=== PATIENT | male | born 1950 | race Caucasian/White ===

== ENCOUNTER 2018-03-15 23:33 | Inpatient (IN) | payer MEDICARE, OTHER ==
[~2018-03-15] VITALS: Ht 175.3 cm; Wt 111.0 kg
[2018-03-15] MEDS ORDERED: NITROGLYCERIN IV PRN (23:39)
[2018-03-15] MEDS ORDERED: D5W PMX IV PRN (23:39)
[2018-03-15] MEDS ORDERED: NITROGLYCERIN SINGLE TAB 0.4 MG SL ONE (23:42)
[2018-03-15] MEDS ORDERED: NITROGLYCERIN/D5W PMX 250 ML ONE (23:42)
[2018-03-15] MEDS ORDERED: methylPREDNISolone SOD SUCC 125 MG/2 ML ONE (23:45)
[2018-03-15] MEDS ORDERED: LORazepam 2 MG/ML, 1ML IVPush STA (23:49)
[2018-03-15] MEDS ORDERED: LORazepam 2 MG/ML, 1ML ONE (23:49)
[2018-03-15 23:54] LABS: MEAN CORPUSCULAR HEMOGLOBIN 30.2 pg (27.5-34.5); MEAN CORPUSCULAR VOLUME 91.4 fL (81-97); MEAN PLATELET VOLUME 9.9 fL (7.4-10.4); PLATELET COUNT 270 x10^3/uL (130-400); RED BLOOD COUNT 4.92 x10^6/uL (4.38-5.82); RED CELL DISTRIBUTION WIDTH 14.7 % (9.4-14.8)
[2018-03-16] MEDS ORDERED: NITROGLYCERIN SINGLE TAB 0.4 MG SL PRN
[2018-03-16] MEDS ORDERED: SODIUM CHLORIDE FLUSH 10ML SYR IVF ONE
[2018-03-16] MEDS ORDERED: methylPREDNISolone SOD SUCC 125 MG/2 ML IVP ONE
[2018-03-16 00:05] LABS: ALBUMIN 3.9 g/dL (3.4-5.0); ANION GAP 11 mmol/L (5-15); CALCIUM 8.9 mg/dL (8.5-10.1); CHLORIDE 107 mmol/L (98-107); CREATININE 1.46 mg/dL (0.7-1.3)
[2018-03-16 00:13] LABS: MD YES
[2018-03-16 00:14] LABS: BASOS#(MANUAL) 0.21 x10^3/uL (0-0.1); BASOS% (MANUAL) 1 % (0-1); LYMPH#(MANUAL) 8.11 x10^3/uL (1-3.4); LYMPHS% (MANUAL) 39 % (22-44); MONOS#(MANUAL) 1.25 x10^3/uL (0.3-2.7); MONOS% (MANUAL) 6 % (2-9); SEG#(MANUAL) 11.23 x10^3/uL (1.8-6.8); SEGS% (MANUAL) 54 % (42-75)
[2018-03-16 00:15] LABS: <PLATELET ESTIMATE> ADEQUATE; <PLT MORPHOLOGY> NORMAL PLT MORPH; ANISOCYTOSIS 1+; POLYCHROMASIA 1+
[2018-03-16] MEDS: PROPOFOL 100 ML IV PRN ×8 (00:15→23:15)
[2018-03-16] MEDS ORDERED: TICAGRELOR 90 MG TABLET ONE (00:26)
[2018-03-16] MEDS ORDERED: VERAPAMIL 2.5 MG/ML, 2ML ONE (00:26)
[2018-03-16] MEDS ORDERED: FENTANYL PF 100 MCG/2ML ONE (00:26)
[2018-03-16] MEDS ORDERED: MIDAZOLAM 1 MG/ML, 5ML ONE ×2 (00:26→08:00)
[2018-03-16] MEDS ORDERED: NITROGLYCERIN 5 MG/ML, 10ML ONE (00:27)
[2018-03-16] MEDS ORDERED: HEPARIN 1,000 UNITS/ML, 10ML ONE (00:27)
[2018-03-16] MEDS ORDERED: PHENYLEPHRINE 10 MG/ML ONE (00:27)
[2018-03-16] MEDS ORDERED: BIVALIRUDIN 250 MG ONE ×2 (00:27→01:51)
[2018-03-16] MEDS ORDERED: ETOMIDATE 20 MG/10 ML IVPush ONE (00:30)
[2018-03-16] MEDS ORDERED: SUCCINYLCHOLINE 20 MG/ML, 10ML IVPush ONE (00:30)
[2018-03-16] MEDS ORDERED: MIDAZOLAM 1 MG/ML, 5ML IVPush ONE (01:00)
[2018-03-16] MEDS ORDERED: ASPIRIN 81 MG TABLET CHEW PO ONE (01:00)
[2018-03-16] MEDS ORDERED: SODIUM CHLORIDE 0.9% 500 ML IV PRN (01:50)
[2018-03-16] MEDS ORDERED: HEPARIN 25,000 UNITS in DEXTROSE 10% 495 ML IV SCH (02:30)
[2018-03-16] MEDS ORDERED: ASPIRIN 81 MG TABLET CHEW ONE (02:41)
[2018-03-16] MEDS ORDERED: PHARMACY MAY ADJ FOR RENAL FX MC SCH (03:30)
[2018-03-16] MEDS ORDERED: LIDOCAINE-MPF 1%, 2ML ENDO PRN (03:30)
[2018-03-16 03:52] LABS: ANION GAP 5 mmol/L (5-15); CALCIUM 7.9 mg/dL (8.5-10.1); CHLORIDE 107 mmol/L (98-107); CREATININE 1.34 mg/dL (0.7-1.3)
[2018-03-16] MEDS: HEPARIN 25,000 UNITS/500ML PMX 500 ML IV PRN ×2 (03:54→22:22)
[2018-03-16] MEDS ORDERED: REGULAR INSULIN 62.5 UNITS in SODIUM CHLORIDE 0.9% 249.375 ML IV PRN (04:00)
[2018-03-16] MEDS ORDERED: CEFAZOLIN PMX 1GM/50ML 50 ML IV ONE (06:00)
[2018-03-16] MEDS ORDERED: ETOMIDATE 20 MG/10 ML ONE (08:00)
[2018-03-16] MEDS ORDERED: SUCCINYLCHOLINE 20 MG/ML, 10ML ONE (08:00)
[2018-03-16] MEDS ORDERED: PROPOFOL 10 MG/ML, 20ML ONE (08:00)
[2018-03-16] MEDS ORDERED: PROPOFOL 10 MG/ML, 100ML IV ONE (08:00)
[2018-03-16] MEDS ORDERED: ASPIRIN 81 MG TABLET EC PO SCH (09:00)
[2018-03-16] MEDS: TICAGRELOR 90 MG TABLET PO SCH ×2 (09:50→21:10)
[2018-03-16] MEDS: ASPIRIN 81 MG TABLET CHEW PO SCH (10:43)
[2018-03-16] MEDS: INSULIN LISPRO 100 UNITS/ML, PEN SQ-INSULIN SCH ×3 (11:25→21:05)
[2018-03-16] MEDS: INSULIN GLARGINE 100 UNITS/ML, PEN SQ-INSULIN SCH ×2 (11:25→21:06)
[2018-03-16 12:30] LABS: HEMOGLOBIN A1C 6.3 % (4.2-6.3)
[2018-03-16 13:35] LABS: BASOPHILS # (AUTO) 0.02 x10^3/uL (0-0.1); BASOPHILS % (AUTO) 0 % (0-1); EOSINOPHILS % (AUTO) 0 % (1-7); LYMPHOCYTES # (AUTO) 0.67 x10^3/uL (1-3.4); LYMPHOCYTES % (AUTO) 6 % (22-44); MD SCAN; MEAN CORPUSCULAR HEMOGLOBIN 30.8 pg (27.5-34.5); MEAN CORPUSCULAR HGB CONC 33.9 g/dL (33.2-36.2); MEAN CORPUSCULAR VOLUME 90.9 fL (81-97); MEAN PLATELET VOLUME 10.1 fL (7.4-10.4); MONOCYTES # (AUTO) 0.35 x10^3/uL (0.2-0.8); MONOCYTES % (AUTO) 3 % (2-9); NEUTROPHILS # (AUTO) 10.89 x10^3/uL (1.8-6.8); NEUTROPHILS % (AUTO) 91 % (42-75); PLATELET COUNT 174 x10^3/uL (130-400); RED BLOOD COUNT 3.69 x10^6/uL (4.38-5.82); RED CELL DISTRIBUTION WIDTH 14.7 % (9.4-14.8)
[2018-03-16] MEDS ORDERED: MORPHINE SULFATE 4 MG/ML, 1ML ONE (16:16)
[2018-03-16] MEDS: MORPHINE SULFATE 4 MG/ML, 1ML IVPush PRN ×3 (16:22→19:51)
[2018-03-16] MEDS: ATORVASTATIN 80 MG TABLET PO SCH (21:10)
[2018-03-16] MEDS ORDERED: METF500T5 PO (23:32)
[2018-03-16] MEDS ORDERED: LOSA1TAB22 PO (23:33)
[2018-03-16] MEDS ORDERED: ATOR20TA9 PO (23:34)
[2018-03-16] MEDS ORDERED: AMLO10TA2 PO (23:34)
[2018-03-16] MEDS ORDERED: CLOP75TA52 PO (23:34)
[2018-03-16] MEDS ORDERED: MELA5TAB21 PO (23:38)
[2018-03-16] MEDS ORDERED: SERT100T5 PO (23:38)
[2018-03-16] MEDS ORDERED: ASPI500T13 PO (23:45)
[2018-03-16] MEDS ORDERED: DORZ10DR27 EACHEYE ×2 (23:48→23:50)
[2018-03-16] MEDS ORDERED: LATA7.5D EACHEYE (23:50)
[2018-03-17] MEDS: PROPOFOL 100 ML IV PRN ×7 (02:25→22:59)
[2018-03-17 04:00] VITALS: BP 95/58
[2018-03-17 04:24] LABS: BASOPHILS # (AUTO) 0.07 x10^3/uL (0-0.1); BASOPHILS % (AUTO) 1 % (0-1); EOSINOPHILS # (AUTO) 0.01 x10^3/uL (0-0.4); EOSINOPHILS % (AUTO) 0 % (1-7); LYMPHOCYTES # (AUTO) 0.97 x10^3/uL (1-3.4); LYMPHOCYTES % (AUTO) 9 % (22-44); MD NO; MEAN CORPUSCULAR HEMOGLOBIN 30.6 pg (27.5-34.5); MEAN CORPUSCULAR HGB CONC 33.9 g/dL (33.2-36.2); MEAN CORPUSCULAR VOLUME 90.1 fL (81-97); MEAN PLATELET VOLUME 10.1 fL (7.4-10.4); MONOCYTES # (AUTO) 0.84 x10^3/uL (0.2-0.8); MONOCYTES % (AUTO) 8 % (2-9); NEUTROPHILS # (AUTO) 9.36 x10^3/uL (1.8-6.8); NEUTROPHILS % (AUTO) 83 % (42-75); PLATELET COUNT 147 x10^3/uL (130-400); RED BLOOD COUNT 3.15 x10^6/uL (4.38-5.82); RED CELL DISTRIBUTION WIDTH 14.9 % (9.4-14.8)
[2018-03-17 04:31] LABS: ANION GAP 7 mmol/L (5-15); CALCIUM 7.4 mg/dL (8.5-10.1); CHLORIDE 110 mmol/L (98-107); CREATININE 1.52 mg/dL (0.7-1.3)
[2018-03-17] MEDS: MORPHINE SULFATE 4 MG/ML, 1ML IVPush PRN ×2 (04:31→10:12)
[2018-03-17] MEDS: INSULIN LISPRO 100 UNITS/ML, PEN SQ-INSULIN SCH ×3 (05:34→21:07)
[2018-03-17 06:34] LABS: ALBUMIN 2.9 g/dL (3.4-5.0)
[2018-03-17] MEDS: ASPIRIN 81 MG TABLET CHEW PO SCH (09:11)
[2018-03-17] MEDS: TICAGRELOR 90 MG TABLET PO SCH ×2 (09:11→21:05)
[2018-03-17] MEDS: INSULIN GLARGINE 100 UNITS/ML, PEN SQ-INSULIN SCH ×2 (09:12→21:05)
[2018-03-17] MEDS ORDERED: CEFAZOLIN PMX 1GM/50ML 0 ML ONE (12:06)
[2018-03-17] MEDS ORDERED: FUROSEMIDE 20 MG/2 ML ONE (13:13)
[2018-03-17] MEDS ORDERED: FUROSEMIDE 20 MG/2 ML IV ONE (13:30)
[2018-03-17] MEDS: EPINEPHRINE 1 MG in SODIUM CHLORIDE 0.9% 249 ML IV PRN (15:27)
[2018-03-17] MEDS: DOBUTAMINE 250 MG in SODIUM CHLORIDE 0.9% 230 ML IV PRN (16:33)
[2018-03-17] MEDS ORDERED: FUROSEMIDE 40 MG/4 ML IV ONE (17:00)
[2018-03-17] MEDS: ATORVASTATIN 80 MG TABLET PO SCH (21:05)
[2018-03-18] MEDS: DOBUTAMINE 250 MG in SODIUM CHLORIDE 0.9% 230 ML IV PRN ×3 (00:19→19:42)
[2018-03-18] MEDS: EPINEPHRINE 1 MG in SODIUM CHLORIDE 0.9% 249 ML IV PRN (04:31)
[2018-03-18] MEDS: PROPOFOL 100 ML IV PRN (04:32)
[2018-03-18] MEDS: INSULIN LISPRO 100 UNITS/ML, PEN SQ-INSULIN SCH ×4 (04:43→21:00)
[2018-03-18 05:05] LABS: BASOPHILS # (AUTO) 0.02 x10^3/uL (0-0.1); BASOPHILS % (AUTO) 0 % (0-1); EOSINOPHILS # (AUTO) 0.01 x10^3/uL (0-0.4); EOSINOPHILS % (AUTO) 0 % (1-7); LYMPHOCYTES # (AUTO) 0.66 x10^3/uL (1-3.4); LYMPHOCYTES % (AUTO) 10 % (22-44); MD NO; MEAN CORPUSCULAR HEMOGLOBIN 30.9 pg (27.5-34.5); MEAN CORPUSCULAR HGB CONC 34.3 g/dL (33.2-36.2); MEAN CORPUSCULAR VOLUME 90.1 fL (81-97); MEAN PLATELET VOLUME 9.5 fL (7.4-10.4); MONOCYTES % (AUTO) 11 % (2-9); NEUTROPHILS # (AUTO) 5.27 x10^3/uL (1.8-6.8); NEUTROPHILS % (AUTO) 79 % (42-75); PLATELET COUNT 112 x10^3/uL (130-400); RED BLOOD COUNT 2.58 x10^6/uL (4.38-5.82)
[2018-03-18 05:16] LABS: ANION GAP 8 mmol/L (5-15); CALCIUM 6.8 mg/dL (8.5-10.1); CHLORIDE 112 mmol/L (98-107); CREATININE 1.16 mg/dL (0.7-1.3)
[2018-03-18 06:17] VITALS: BP 121/55
[2018-03-18] MEDS: ASPIRIN 81 MG TABLET CHEW PO SCH (09:17)
[2018-03-18] MEDS: TICAGRELOR 90 MG TABLET PO SCH ×2 (09:17→21:29)
[2018-03-18] MEDS: FAMOTIDINE 20 MG/2 ML IVPush SCH ×2 (09:17→21:29)
[2018-03-18] MEDS: INSULIN GLARGINE 100 UNITS/ML, PEN SQ-INSULIN SCH ×2 (09:18→21:32)
[2018-03-18] MEDS ORDERED: CALCIUM CHLORIDE 13.6 MEQ in SODIUM CHLORIDE 0.9% 100 ML IV ONE (14:30)
[2018-03-18] MEDS ORDERED: ERGOCALCIFEROL 50,000 UNIT CAPSULE PO SCH (15:00)
[2018-03-18] MEDS: ATORVASTATIN 80 MG TABLET PO SCH (21:29)
[2018-03-19] MEDS: INSULIN LISPRO 100 UNITS/ML, PEN SQ-INSULIN SCH ×4 (03:00→20:57)
[2018-03-19 04:00] VITALS: BP 117/53
[2018-03-19 06:09] LABS: ALBUMIN 2.6 g/dL (3.4-5.0); ANION GAP 8 mmol/L (5-15); CHLORIDE 115 mmol/L (98-107); CREATININE 0.77 mg/dL (0.7-1.3)
[2018-03-19 06:37] LABS: BASOPHILS % (AUTO) 0 % (0-1); EOSINOPHILS # (AUTO) 0.04 x10^3/uL (0-0.4); EOSINOPHILS % (AUTO) 1 % (1-7); LYMPHOCYTES # (AUTO) 0.82 x10^3/uL (1-3.4); LYMPHOCYTES % (AUTO) 18 % (22-44); MD NO; MEAN CORPUSCULAR HEMOGLOBIN 30.4 pg (27.5-34.5); MEAN CORPUSCULAR HGB CONC 33.6 g/dL (33.2-36.2); MEAN CORPUSCULAR VOLUME 90.7 fL (81-97); MEAN PLATELET VOLUME 9.8 fL (7.4-10.4); MONOCYTES # (AUTO) 0.45 x10^3/uL (0.2-0.8); MONOCYTES % (AUTO) 10 % (2-9); NEUTROPHILS # (AUTO) 3.33 x10^3/uL (1.8-6.8); NEUTROPHILS % (AUTO) 72 % (42-75); PLATELET COUNT 104 x10^3/uL (130-400); RED BLOOD COUNT 2.61 x10^6/uL (4.38-5.82); RED CELL DISTRIBUTION WIDTH 14.7 % (9.4-14.8)
[2018-03-19] MEDS: FAMOTIDINE 20 MG/2 ML IVPush SCH ×2 (09:38→20:31)
[2018-03-19] MEDS: ASPIRIN 81 MG TABLET CHEW PO SCH (09:38)
[2018-03-19] MEDS: TICAGRELOR 90 MG TABLET PO SCH ×2 (09:39→20:30)
[2018-03-19] MEDS: ENOXAPARIN 40 MG/0.4 ML SQ SCH (10:30)
[2018-03-19] MEDS: INSULIN GLARGINE 100 UNITS/ML, PEN SQ-INSULIN SCH ×2 (11:55→20:59)
[2018-03-19 13:41] VITALS: BP 118/63
[2018-03-19] MEDS ORDERED: FUROSEMIDE 40 MG/4 ML ONE (14:00)
[2018-03-19] MEDS ORDERED: FUROSEMIDE 40 MG/4 ML IV ONE (14:00)
[2018-03-19 20:25] LABS: ANION GAP 5 mmol/L (5-15); CALCIUM 7.9 mg/dL (8.5-10.1); CHLORIDE 111 mmol/L (98-107)
[2018-03-19 20:29] LABS: CREATININE 1.03 mg/dL (0.7-1.3)
[2018-03-19] MEDS: ATORVASTATIN 80 MG TABLET PO SCH (20:30)
[2018-03-20] MEDS: INSULIN LISPRO 100 UNITS/ML, PEN SQ-INSULIN SCH ×4 (03:00→20:18)
[2018-03-20 05:06] LABS: CHLORIDE 111 mmol/L (98-107)
[2018-03-20 05:13] LABS: ALANINE AMINOTRANSFERASE 56 U/L (12-78); ALBUMIN 2.6 g/dL (3.4-5.0); ALKALINE PHOSPHATASE 99 U/L (45-117); ANION GAP 5 mmol/L (5-15); BILIRUBIN,TOTAL 0.7 mg/dL (0.2-1.0); CALCIUM 8.1 mg/dL (8.5-10.1); CREATININE 0.96 mg/dL (0.7-1.3)
[2018-03-20 05:28] LABS: BASOPHILS # (AUTO) 0.02 x10^3/uL (0-0.1); BASOPHILS % (AUTO) 0 % (0-1); EOSINOPHILS # (AUTO) 0.16 x10^3/uL (0-0.4); EOSINOPHILS % (AUTO) 3 % (1-7); LYMPHOCYTES # (AUTO) 0.96 x10^3/uL (1-3.4); LYMPHOCYTES % (AUTO) 16 % (22-44); MD NO; MEAN CORPUSCULAR HEMOGLOBIN 31.4 pg (27.5-34.5); MEAN CORPUSCULAR HGB CONC 34.6 g/dL (33.2-36.2); MEAN CORPUSCULAR VOLUME 90.7 fL (81-97); MONOCYTES # (AUTO) 0.61 x10^3/uL (0.2-0.8); MONOCYTES % (AUTO) 10 % (2-9); NEUTROPHILS # (AUTO) 4.28 x10^3/uL (1.8-6.8); NEUTROPHILS % (AUTO) 71 % (42-75); PLATELET COUNT 117 x10^3/uL (130-400); RED CELL DISTRIBUTION WIDTH 14.8 % (9.4-14.8)
[2018-03-20] MEDS: INSULIN GLARGINE 100 UNITS/ML, PEN SQ-INSULIN SCH ×2 (09:22→20:19)
[2018-03-20] MEDS: FAMOTIDINE 20 MG/2 ML IVPush SCH ×2 (09:23→20:17)
[2018-03-20] MEDS: TICAGRELOR 90 MG TABLET PO SCH ×2 (09:23→20:17)
[2018-03-20] MEDS: FUROSEMIDE 40 MG/4 ML IV SCH ×2 (09:23→16:37)
[2018-03-20] MEDS: ASPIRIN 81 MG TABLET CHEW PO SCH (09:23)
[2018-03-20] MEDS: ENOXAPARIN 40 MG/0.4 ML SQ SCH (09:24)
[2018-03-20] MEDS: ATORVASTATIN 80 MG TABLET PO SCH (20:17)
[2018-03-21 04:26] LABS: BASOPHILS # (AUTO) 0.02 x10^3/uL (0-0.1); BASOPHILS % (AUTO) 0 % (0-1); EOSINOPHILS # (AUTO) 0.22 x10^3/uL (0-0.4); EOSINOPHILS % (AUTO) 4 % (1-7); LYMPHOCYTES # (AUTO) 0.99 x10^3/uL (1-3.4); LYMPHOCYTES % (AUTO) 18 % (22-44); MD NO; MEAN CORPUSCULAR HEMOGLOBIN 30.7 pg (27.5-34.5); MEAN CORPUSCULAR HGB CONC 34.1 g/dL (33.2-36.2); MEAN CORPUSCULAR VOLUME 90.1 fL (81-97); MEAN PLATELET VOLUME 9.7 fL (7.4-10.4); MONOCYTES # (AUTO) 0.61 x10^3/uL (0.2-0.8); MONOCYTES % (AUTO) 11 % (2-9); NEUTROPHILS # (AUTO) 3.77 x10^3/uL (1.8-6.8); NEUTROPHILS % (AUTO) 67 % (42-75); PLATELET COUNT 123 x10^3/uL (130-400); RED BLOOD COUNT 2.59 x10^6/uL (4.38-5.82); RED CELL DISTRIBUTION WIDTH 14.4 % (9.4-14.8)
[2018-03-21 04:30] LABS: ALANINE AMINOTRANSFERASE 75 U/L (12-78); ALBUMIN 2.5 g/dL (3.4-5.0); ANION GAP 6 mmol/L (5-15); CALCIUM 7.8 mg/dL (8.5-10.1); CHLORIDE 109 mmol/L (98-107); CREATININE 0.88 mg/dL (0.7-1.3)
[2018-03-21 04:33] LABS: ALKALINE PHOSPHATASE 105 U/L (45-117); BILIRUBIN,TOTAL 0.5 mg/dL (0.2-1.0); TOTAL PROTEIN 5.8 g/dL (6.4-8.2)
[2018-03-21] MEDS: INSULIN LISPRO 100 UNITS/ML, PEN SQ-INSULIN SCH ×4 (07:00→20:17)
[2018-03-21] MEDS ORDERED: FUROSEMIDE 40 MG TABLET ONE (08:44)
[2018-03-21] MEDS: TICAGRELOR 90 MG TABLET PO SCH ×2 (08:47→20:00)
[2018-03-21] MEDS: ASPIRIN 81 MG TABLET CHEW PO SCH (08:47)
[2018-03-21] MEDS: FAMOTIDINE 20 MG/2 ML IVPush SCH ×2 (08:48→20:00)
[2018-03-21] MEDS: LISINOPRIL 5 MG TABLET PO SCH (08:48)
[2018-03-21] MEDS ORDERED: FUROSEMIDE 10 MG/ML ORAL SOL PO SCH (09:00)
[2018-03-21] MEDS: FUROSEMIDE 40 MG TABLET PO SCH (09:10)
[2018-03-21] MEDS: INSULIN GLARGINE 100 UNITS/ML, PEN SQ-INSULIN SCH ×2 (09:10→20:40)
[2018-03-21] MEDS: ENOXAPARIN 40 MG/0.4 ML SQ SCH (11:57)
[2018-03-21 12:15] VITALS: BP 115/64
[2018-03-21 13:31] VITALS: BP 120/59
[2018-03-21 18:37] VITALS: BP 116/77
[2018-03-21 19:55] VITALS: BP 115/78
[2018-03-21] MEDS: ATORVASTATIN 80 MG TABLET PO SCH (20:00)
[2018-03-21 22:00] VITALS: BP 115/67
[2018-03-22 03:33] VITALS: BP 129/72
[2018-03-22 03:49] LABS: ALANINE AMINOTRANSFERASE 75 U/L (12-78); ALBUMIN 2.6 g/dL (3.4-5.0); ANION GAP 6 mmol/L (5-15); CHLORIDE 107 mmol/L (98-107); CREATININE 0.92 mg/dL (0.7-1.3)
[2018-03-22 03:50] LABS: BASOPHILS # (AUTO) 0.03 x10^3/uL (0-0.1); BASOPHILS % (AUTO) 0 % (0-1); EOSINOPHILS # (AUTO) 0.23 x10^3/uL (0-0.4); EOSINOPHILS % (AUTO) 4 % (1-7); LYMPHOCYTES # (AUTO) 1.16 x10^3/uL (1-3.4); LYMPHOCYTES % (AUTO) 18 % (22-44); MD NO; MEAN CORPUSCULAR HEMOGLOBIN 30.3 pg (27.5-34.5); MEAN CORPUSCULAR HGB CONC 33.6 g/dL (33.2-36.2); MEAN CORPUSCULAR VOLUME 90.2 fL (81-97); MEAN PLATELET VOLUME 8.8 fL (7.4-10.4); MONOCYTES # (AUTO) 0.89 x10^3/uL (0.2-0.8); MONOCYTES % (AUTO) 14 % (2-9); NEUTROPHILS # (AUTO) 4.32 x10^3/uL (1.8-6.8); NEUTROPHILS % (AUTO) 65 % (42-75); PLATELET COUNT 149 x10^3/uL (130-400); RED BLOOD COUNT 2.61 x10^6/uL (4.38-5.82); RED CELL DISTRIBUTION WIDTH 14.3 % (9.4-14.8)
[2018-03-22 03:51] LABS: ALKALINE PHOSPHATASE 108 U/L (45-117); BILIRUBIN,TOTAL 0.4 mg/dL (0.2-1.0); TOTAL PROTEIN 5.8 g/dL (6.4-8.2)
[2018-03-22] MEDS: INSULIN LISPRO 100 UNITS/ML, PEN SQ-INSULIN SCH ×4 (07:00→20:18)
[2018-03-22 08:41] VITALS: BP 124/68
[2018-03-22] MEDS: ASPIRIN 81 MG TABLET CHEW PO SCH (08:43)
[2018-03-22] MEDS: LISINOPRIL 5 MG TABLET PO SCH (08:43)
[2018-03-22] MEDS: TICAGRELOR 90 MG TABLET PO SCH ×2 (08:44→20:06)
[2018-03-22] MEDS: FUROSEMIDE 40 MG TABLET PO SCH (08:44)
[2018-03-22] MEDS: FAMOTIDINE 20 MG/2 ML IVPush SCH (08:44)
[2018-03-22] MEDS: ENOXAPARIN 40 MG/0.4 ML SQ SCH (08:51)
[2018-03-22] MEDS: INSULIN GLARGINE 100 UNITS/ML, PEN SQ-INSULIN SCH ×2 (08:52→20:19)
[2018-03-22 14:57] VITALS: BP 118/65
[2018-03-22 18:52] VITALS: BP 104/56
[2018-03-22 20:03] VITALS: BP 113/58
[2018-03-22] MEDS: ATORVASTATIN 80 MG TABLET PO SCH (20:06)
[2018-03-22] MEDS: FAMOTIDINE 20 MG TABLET PO SCH (20:06)
[2018-03-23 03:40] VITALS: BP 149/81
[2018-03-23 07:58] VITALS: BP 120/60
[2018-03-23] MEDS: TICAGRELOR 90 MG TABLET PO SCH ×2 (08:03→20:14)
[2018-03-23] MEDS: ASPIRIN 81 MG TABLET CHEW PO SCH (08:03)
[2018-03-23] MEDS: FAMOTIDINE 20 MG TABLET PO SCH ×2 (08:03→20:14)
[2018-03-23] MEDS: FUROSEMIDE 40 MG TABLET PO SCH (08:04)
[2018-03-23] MEDS: LISINOPRIL 5 MG TABLET PO SCH (08:04)
[2018-03-23] MEDS: INSULIN LISPRO 100 UNITS/ML, PEN SQ-INSULIN SCH ×4 (08:05→20:15)
[2018-03-23] MEDS: ENOXAPARIN 40 MG/0.4 ML SQ SCH (08:05)
[2018-03-23] MEDS: INSULIN GLARGINE 100 UNITS/ML, PEN SQ-INSULIN SCH ×2 (08:05→20:14)
[2018-03-23 14:12] VITALS: BP 117/67
[2018-03-23 20:01] VITALS: BP 125/69
[2018-03-23] MEDS: ATORVASTATIN 80 MG TABLET PO SCH (20:14)
[2018-03-24 00:56] VITALS: BP 125/68
[2018-03-24] MEDS: INSULIN LISPRO 100 UNITS/ML, PEN SQ-INSULIN SCH ×2 (07:59→11:03)
[2018-03-24 08:00] VITALS: BP 117/63
[2018-03-24] MEDS: FUROSEMIDE 40 MG TABLET PO SCH (08:01)
[2018-03-24] MEDS: TICAGRELOR 90 MG TABLET PO SCH (08:01)
[2018-03-24] MEDS: FAMOTIDINE 20 MG TABLET PO SCH (08:01)
[2018-03-24] MEDS: ASPIRIN 81 MG TABLET CHEW PO SCH (08:02)
[2018-03-24] MEDS: LISINOPRIL 5 MG TABLET PO SCH (08:02)
[2018-03-24] MEDS: INSULIN GLARGINE 100 UNITS/ML, PEN SQ-INSULIN SCH (08:08)
[2018-03-24] MEDS: ENOXAPARIN 40 MG/0.4 ML SQ SCH (11:04)
[2018-03-24] MEDS ORDERED: FURO40TA6 PO (11:17)
[2018-03-24] MEDS ORDERED: ERGO500017 PO (11:17)
[2018-03-24] MEDS ORDERED: TICA90TA PO (11:17)
[2018-03-24] MEDS ORDERED: CARV3.1212 PO (11:17)
[2018-03-24] MEDS ORDERED: ASPI-515 PO (11:17)
[2018-03-24] MEDS ORDERED: LISI5TAB7 PO (11:17)
[2018-03-24] MEDS ORDERED: ATOR-2 PO (11:17)
== END 2018-03-24 13:35 | disposition home or self-care (01) | DRG 215 ==
LOC: ED 03-16 00:28 → EDIP 03-16 00:30 → CCU 03-16 02:33 → 5SO 03-19 13:18 → CCU 03-19 16:33 → 5SO 03-21 12:19 → DCLOUNGE 03-24 12:35
PROVIDERS: ADMIT Hospitalist; ATTEND Hospitalist
PROC: 02HA3RZ Insertion of Short-term External Heart Assist System into Heart, Percutaneous Approach (ICD-10-PCS; principal; 2018-03-16)
PROC: 5A0221D Assistance with Cardiac Output using Impeller Pump, Continuous (ICD-10-PCS; 2018-03-16)
PROC: 027135Z Dilation of Coronary Artery, Two Arteries with Two Drug-eluting Intraluminal Devices, Percutaneous Approach (ICD-10-PCS; 2018-03-16)
PROC: 5A1945Z Respiratory Ventilation, 24-96 Consecutive Hours (ICD-10-PCS; 2018-03-16)
PROC: 0BH17EZ Insertion of Endotracheal Airway into Trachea, Via Natural or Artificial Opening (ICD-10-PCS; 2018-03-16)
PROC: 5A09357 Assistance with Respiratory Ventilation, Less than 24 Consecutive Hours, Continuous Positive Airway Pressure (ICD-10-PCS; 2018-03-16)
PROC: 4A023N7 Measurement of Cardiac Sampling and Pressure, Left Heart, Percutaneous Approach (ICD-10-PCS; 2018-03-16)
PROC: B2111ZZ Fluoroscopy of Multiple Coronary Arteries using Low Osmolar Contrast (ICD-10-PCS; 2018-03-16)
PROC: B2151ZZ Fluoroscopy of Left Heart using Low Osmolar Contrast (ICD-10-PCS; 2018-03-16)
PROC: 02PA3RZ Removal of Short-term External Heart Assist System from Heart, Percutaneous Approach (ICD-10-PCS; 2018-03-17)
PROC: 02HV33Z Insertion of Infusion Device into Superior Vena Cava, Percutaneous Approach (ICD-10-PCS; 2018-03-17)
PROC: B548ZZA Ultrasonography of Superior Vena Cava, Guidance (ICD-10-PCS; 2018-03-17)
PROC: 5A09357 Assistance with Respiratory Ventilation, Less than 24 Consecutive Hours, Continuous Positive Airway Pressure (ICD-10-PCS; 2018-03-19)
PROC: 5A09357 Assistance with Respiratory Ventilation, Less than 24 Consecutive Hours, Continuous Positive Airway Pressure (ICD-10-PCS; 2018-03-22)
PROC: 5A09357 Assistance with Respiratory Ventilation, Less than 24 Consecutive Hours, Continuous Positive Airway Pressure (ICD-10-PCS; 2018-03-23)
PROC: 5A09357 Assistance with Respiratory Ventilation, Less than 24 Consecutive Hours, Continuous Positive Airway Pressure (ICD-10-PCS; 2018-03-24)
DX: I21.09 ST elevation (STEMI) myocardial infarction involving other coronary artery of anterior wall (principal); J96.01 Acute respiratory failure with hypoxia; R57.0 Cardiogenic shock; I50.43 Acute on chronic combined systolic (congestive) and diastolic (congestive) heart failure; J98.11 Atelectasis; E11.51 Type 2 diabetes mellitus with diabetic peripheral angiopathy without gangrene; E11.65 Type 2 diabetes mellitus with hyperglycemia; E66.9 Obesity, unspecified; E78.5 Hyperlipidemia, unspecified; G47.33 Obstructive sleep apnea (adult) (pediatric); I11.0 Hypertensive heart disease with heart failure; E55.9 Vitamin D deficiency, unspecified; I25.10 Atherosclerotic heart disease of native coronary artery without angina pectoris; I25.5 Ischemic cardiomyopathy; Z79.82 Long term (current) use of aspirin; Z68.36 Body mass index [BMI] 36.0-36.9, adult; Z87.891 Personal history of nicotine dependence; Z89.512 Acquired absence of left leg below knee; Z89.612 Acquired absence of left leg above knee
CPT/HCPCS: 33990; 36415; 36569; 36600; 71045; 76937; 77001; 80048; 80053; 82040; 82306; 82330; 82803; 82805; 82962; 83036; 83735; 83880; 83970; 84100; 84478; 84484; 85014; 85018; 85025; 85347; 87070; 87081; 87205; 93005; 93306; 93458; 93970; 94002; 94003; 99156; 99157; C1769; C1894; C9600; J0583; J0690; J1644; J1650; J1815; J1940; J2250; J2704; J3010; J3490; C1725; C1751; C1874; C1887; J0171; J0330; J1250; J2060; J2370; J2930; J7050; Q9967; S0028